=== PATIENT | male | born 1980 | race Caucasian/White ===

== ENCOUNTER 2016-03-12 13:57 | Emergency (ER) | payer MEDICARE | END 2016-03-12 18:03 | disposition home or self-care (01) | LOC: D.ER 13:57 | DX: Z76.5 Malingerer [conscious simulation] (principal); F41.9 Anxiety disorder, unspecified; G89.29 Other chronic pain ==

== ENCOUNTER 2016-06-12 14:22 | Emergency (ER) | payer MEDICARE | END 2016-06-12 15:50 | disposition home or self-care (01) | LOC: D.ER 14:22 | DX: F41.9 Anxiety disorder, unspecified (principal); I10 Essential (primary) hypertension; Z76.5 Malingerer [conscious simulation]; F41.0 Panic disorder [episodic paroxysmal anxiety] ==

== ENCOUNTER 2016-07-06 10:26 | Emergency (ER) | payer MEDICARE | END 2016-07-06 20:10 | disposition home or self-care (01) | LOC: D.ER 10:26 | DX: F41.1 Generalized anxiety disorder (principal); I10 Essential (primary) hypertension; F41.0 Panic disorder [episodic paroxysmal anxiety] ==

== ENCOUNTER 2018-11-12 11:15 | Emergency (ER) | payer MEDICARE ==
[~2018-11-12] VITALS: Ht 180.3 cm; Wt 75.0 kg
[2018-11-12 11:17] VITALS: Ht 180.3 cm; Wt 75.0 kg
[2018-11-12] MEDS ORDERED: LISINOPRIL10 MG PO (11:21)
[2018-11-12] MEDS ORDERED: KLONOPIN1 MG PO (11:21)
[2018-11-12] MEDS ORDERED: BUPROPION HCL100 MG PO (11:22)
[2018-11-12] MEDS ORDERED: BUPRENORPHINE HC8 MG SL (11:22)
[2018-11-12] MEDS ORDERED: VOLTAREN75 MG PO (12:16)
[2018-11-12] MEDS ORDERED: BACLOFEN20 M1 PO (12:16)
[2018-11-12 12:42] VITALS: BP 154/84
== END 2018-11-12 12:43 | disposition home or self-care (01) ==
LOC: D.ER 11:15
DX: S09.90XA Unspecified injury of head, initial encounter (principal); R51 Headache; Y04.0XXA Assault by unarmed brawl or fight, initial encounter; F17.210 Nicotine dependence, cigarettes, uncomplicated; I10 Essential (primary) hypertension

== ENCOUNTER 2019-01-14 21:22 | Emergency (ER) | payer MEDICARE, MEDICAID ==
[~2019-01-14] VITALS: Ht 180.3 cm; Wt 77.3 kg
[~2019-01-14 21:22] MED LIST: BACLOFEN20 M1 PO; BUPRENORPHINE HC8 MG SL; BUPROPION HCL100 MG PO; KLONOPIN1 MG PO; LISINOPRIL10 MG PO; VOLTAREN75 MG PO
[2019-01-14 21:26] VITALS: Ht 180.3 cm; Wt 77.3 kg
[2019-01-14] MEDS ORDERED: HYDROCODON-ACE1 EAC7 PO (21:27)
[2019-01-15] MEDS ORDERED: KEPPRA500 MG PO (01:03)
[2019-01-15 01:17] VITALS: BP 130/75
== END 2019-01-15 01:15 | disposition home or self-care (01) ==
LOC: D.ER 21:22
DX: R56.9 Unspecified convulsions (principal); S01.81XA Laceration without foreign body of other part of head, initial encounter; X58.XXXA Exposure to other specified factors, initial encounter; Y93.9 Activity, unspecified; Y92.9 Unspecified place or not applicable; I10 Essential (primary) hypertension

== ENCOUNTER 2019-01-22 18:55 | Emergency (ER) | payer MEDICARE, MEDICAID ==
[~2019-01-22] VITALS: Ht 180.3 cm; Wt 75.0 kg
[~2019-01-22 18:55] MED LIST changes: +HYDROCODON-ACE1 EAC7 PO; +KEPPRA500 MG PO
[2019-01-22 18:59] VITALS: Ht 180.3 cm; Wt 75.0 kg
[2019-01-22] MEDS ORDERED: KEPPRA500 MG PO (19:18)
[2019-01-22 19:32] LABS: APPEARANCE CLEAR (CLEAR); BILIRUBIN NEGATIVE (NEGATIVE); COLOR YELLOW (YELLOW); GLUCOSE NEGATIVE (NEGATIVE); KETONE NEGATIVE (NEGATIVE); NITRITE NEGATIVE (NEGATIVE); PROTEIN NEGATIVE (NEGATIVE); UROBILINOGEN NORMAL (NORMAL)
[2019-01-22 19:41] LABS: UDS - AMPHET NEGATIVE QUAL (NEGATIVE); UDS - BARB NEGATIVE QUAL (NEGATIVE); UDS - BENZO POSITIVE QUAL (NEGATIVE); UDS - COCAINE NEGATIVE QUAL (NEGATIVE); UDS - OPIATE NEGATIVE QUAL (NEGATIVE); UDS - PCP NEGATIVE QUAL (NEGATIVE); UDS - THC NEGATIVE QUAL (NEGATIVE)
[2019-01-22 19:53] LABS: BASOPHILS 0.2 % (0-2); HEMATOCRIT 38.4 % (42.0-54.0); HEMOGLOBIN 13.2 g/dL (13.5-17.5); IMMATURE GRANULOCYTES 0.1 % (0-5); LYMPHOCYTES 29.4 % (15-50); MCH 32.7 pg (26.0-34.0); MCHC 34.4 g/dL (31.0-37.0); MEAN PLATELET VOLUME 8.9 fL (7.4-10.4); MONOCYTES 6.2 % (2-11); NEUTROPHILS 63.1 % (40-80); PLATELET COUNT 270 10x3/uL (130-400); RBC 4.04 10x6/uL (4.20-6.10); RDW 13.4 % (11.5-14.5)
[2019-01-22 19:57] LABS: CALC OSMOLALITY 277 mosm/kg (275-300); CARBON DIOXIDE 30.9 mmol/L (21.0-32.0); CHLORIDE - SERUM 101 mmol/L (98-107); CREATININE - SERUM 0.9 mg/dL (0.6-1.3); GLUCOSE 118 mg/dL (74-106); POTASSIUM - SERUM 3.9 mmol/L (3.5-5.1); SODIUM 139 mmol/L (136-145); UREA NITROGEN 9 mg/dL (7-18); eGFR NON AFRICAN AMERICAN > 90 mL/min (90-120)
[2019-01-22 20:03] LABS: ALBUMIN 3.5 g/dL (3.4-5.0); ALKALINE PHOSPHATASE 71 U/L (46-116); ALT (SGPT) 34 U/L (10-68); BILIRUBIN - TOTAL 0.83 mg/dL (0.2-1.3); MAGNESIUM - SERUM 1.5 mg/dL (1.8-2.4); PROTEIN - SERUM 6.8 g/dL (6.4-8.2)
[2019-01-22 20:47] VITALS: BP 136/77
== END 2019-01-22 20:47 | disposition home or self-care (01) ==
LOC: D.ER 18:55
PROVIDERS: Family Medicine
DX: R56.9 Unspecified convulsions (principal); I10 Essential (primary) hypertension; Z72.0 Tobacco use

== ENCOUNTER 2019-01-30 22:27 | Emergency (ER) | payer MEDICARE, MEDICAID ==
[~2019-01-30] VITALS: Ht 180.3 cm; Wt 72.7 kg
[2019-01-30 22:34] VITALS: Ht 180.3 cm; Wt 72.7 kg
[2019-01-30 23:05] LABS: BASOPHILS 0.3 % (0-2); EOSINOPHILS 1.5 % (0-7); HEMOGLOBIN 13.4 g/dL (13.5-17.5); IMMATURE GRANULOCYTES 0.1 % (0-5); LYMPHOCYTES 33.6 % (15-50); MCH 32.1 pg (26.0-34.0); MCHC 34.4 g/dL (31.0-37.0); MCV 93.3 fL (80.0-100.0); MONOCYTES 10.1 % (2-11); NEUTROPHILS 54.4 % (40-80); PLATELET COUNT 277 10x3/uL (130-400); RBC 4.18 10x6/uL (4.20-6.10); RDW 13.1 % (11.5-14.5); WBC 7.9 10x3/uL (4.8-10.8)
[2019-01-30 23:15] LABS: ANION GAP 9.2 mmol/L (8-16); CALCIUM 10.1 mg/dL (8.5-10.1); CARBON DIOXIDE 29.4 mmol/L (21.0-32.0); CREATININE - SERUM 1.5 mg/dL (0.6-1.3); POTASSIUM - SERUM 3.6 mmol/L (3.5-5.1)
[2019-01-30 23:21] LABS: ALBUMIN 3.7 g/dL (3.4-5.0); BILIRUBIN - TOTAL 0.72 mg/dL (0.2-1.3); MAGNESIUM - SERUM 1.9 mg/dL (1.8-2.4); PROTEIN - SERUM 7.3 g/dL (6.4-8.2)
[2019-01-30 23:59] LABS: APPEARANCE CLEAR (CLEAR); COLOR YELLOW (YELLOW); NITRITE NEGATIVE (NEGATIVE); PROTEIN NEGATIVE (NEGATIVE)
[2019-01-31] VITALS: BP 104/62
[2019-01-31] LABS: BILIRUBIN NEGATIVE (NEGATIVE); GLUCOSE NEGATIVE (NEGATIVE); KETONE NEGATIVE (NEGATIVE); UROBILINOGEN NORMAL (NORMAL)
--- NOTE | 2019-01-31 00:07 | NUR ---
DR PATINO NOTIFIED AND SITTER ORDERED. SITTER AT BEDSIDE. NOTIFIED CHARGE NURSE AND ATTENDING IN REGARDS TO ASSESSMENT FINDINGS. RESOURCES GIVEN TO PT AND SAFETY PLAN INITIATED.
[2019-01-31 00:09] LABS: UDS - AMPHET POSITIVE QUAL (NEGATIVE); UDS - BARB NEGATIVE QUAL (NEGATIVE); UDS - BENZO POSITIVE QUAL (NEGATIVE); UDS - COCAINE NEGATIVE QUAL (NEGATIVE); UDS - OPIATE POSITIVE QUAL (NEGATIVE); UDS - PCP NEGATIVE QUAL (NEGATIVE); UDS - THC NEGATIVE QUAL (NEGATIVE)
[2019-01-31] MEDS ORDERED: ZYPREXA10 MG PO (01:33)
== END 2019-01-31 02:30 | disposition home or self-care (01) ==
LOC: D.ER 22:27
PROVIDERS: Emergency Medicine
DX: F20.9 Schizophrenia, unspecified (principal); I10 Essential (primary) hypertension; Z72.0 Tobacco use

== ENCOUNTER 2019-03-12 14:58 | Emergency (ER) | payer MEDICARE, MEDICAID ==
[~2019-03-12] VITALS: Ht 180.3 cm; Wt 75.0 kg
[~2019-03-12 14:58] MED LIST changes: +ZYPREXA10 MG PO
[2019-03-12 15:03] VITALS: Ht 180.3 cm; Wt 75.0 kg
[2019-03-12 16:21] LABS: BASOPHILS 0.2 % (0-2); EOSINOPHILS 1.3 % (0-7); HEMATOCRIT 41.5 % (42.0-54.0); HEMOGLOBIN 14.6 g/dL (13.5-17.5); IMMATURE GRANULOCYTES 0.2 % (0-5); LYMPHOCYTES 27.6 % (15-50); MCHC 35.2 g/dL (31.0-37.0); MCV 93.7 fL (80.0-100.0); MEAN PLATELET VOLUME 10.1 fL (7.4-10.4); MONOCYTES 4.3 % (2-11); NEUTROPHILS 66.4 % (40-80); PLATELET COUNT 222 10x3/uL (130-400); RBC 4.43 10x6/uL (4.20-6.10); RDW 12.1 % (11.5-14.5); WBC 6.1 10x3/uL (4.8-10.8)
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
[2019-03-12 16:29] LABS: APPEARANCE CLEAR (CLEAR); BILIRUBIN NEGATIVE (NEGATIVE); COLOR STRAW (YELLOW); GLUCOSE NEGATIVE (NEGATIVE); KETONE NEGATIVE (NEGATIVE); NITRITE NEGATIVE (NEGATIVE); PROTEIN NEGATIVE (NEGATIVE); SPECIFIC GRAVITY 1.005 (1.005-1.020); UROBILINOGEN NORMAL (NORMAL)
[2019-03-12 16:30] LABS: CALC OSMOLALITY 284 mosm/kg (275-300); CALCIUM 8.9 mg/dL (8.5-10.1); CARBON DIOXIDE 32.9 mmol/L (21.0-32.0); CHLORIDE - SERUM 102 mmol/L (98-107); GLUCOSE 82 mg/dL (74-106); POTASSIUM - SERUM 3.6 mmol/L (3.5-5.1); SODIUM 143 mmol/L (136-145); UREA NITROGEN 14 mg/dL (7-18); eGFR NON AFRICAN AMERICAN 89 mL/min (90-120)
[2019-03-12 16:37] LABS: ALBUMIN 4.1 g/dL (3.4-5.0); ALKALINE PHOSPHATASE 53 U/L (46-116); ALT (SGPT) 24 U/L (10-68); BILIRUBIN - TOTAL 0.77 mg/dL (0.2-1.3); MAGNESIUM - SERUM 1.9 mg/dL (1.8-2.4)
[2019-03-12 16:41] LABS: UDS - AMPHET NEGATIVE QUAL (NEGATIVE); UDS - BARB NEGATIVE QUAL (NEGATIVE); UDS - BENZO NEGATIVE QUAL (NEGATIVE); UDS - COCAINE NEGATIVE QUAL (NEGATIVE); UDS - OPIATE NEGATIVE QUAL (NEGATIVE); UDS - PCP NEGATIVE QUAL (NEGATIVE); UDS - THC NEGATIVE QUAL (NEGATIVE)
[2019-03-13 00:18] VITALS: BP 110/61
== END 2019-03-13 00:43 ==
LOC: D.ER 14:58
PROVIDERS: Emergency Medicine
DX: R45.851 Suicidal ideations (principal); F32.9 Major depressive disorder, single episode, unspecified; I10 Essential (primary) hypertension; Z72.0 Tobacco use